=== PATIENT | male | born 1990 | race Caucasian/White ===

== ENCOUNTER 2017-06-22 11:48 | Emergency (ER) | payer OTHER ==
[~2017-06-22] VITALS: Ht 180.3 cm; Wt 87.1 kg
[~2017-06-22 11:48] MED LIST: AMOXICILLIN500 MG PO; CLINDAMYCIN HC300 MG PO; ERY-TAB333 MG PO; IBUPROFEN800 MG PO; NORCO 5-325 TA1 EACH PO; PENICILLIN V P500 MG PO; ULTRAM50 MG PO
[2017-06-22] MEDS ORDERED: BUPRENORPHINE HC8 MG SL (12:22)
== END 2017-06-22 13:12 | disposition home or self-care (01) ==
LOC: ED 11:48
PROC: 4A0D7LZ Measurement of Urinary Volume, Via Natural or Artificial Opening (ICD-10-PCS; principal; 2017-06-22)
DX: R35.0 Frequency of micturition (principal); F17.200 Nicotine dependence, unspecified, uncomplicated; Z79.899 Other long term (current) drug therapy; Z86.14 Personal history of Methicillin resistant Staphylococcus aureus infection
CPT/HCPCS: 51798; 81001; 99283

== ENCOUNTER 2019-03-23 05:20 | Emergency (ER) | payer OTHER ==
[~2019-03-23] VITALS: Ht 180.3 cm; Wt 90.7 kg
[~2019-03-23 05:20] MED LIST changes: +BUPRENORPHINE HC8 MG SL
--- OUTSIDE RECORDS SUMMARY | 2019-03-23 05:24 | XMS ---
PreManage Notification: RENE HERNANDEZ Security Religious Educator Events No recent Security Events currently on file CRITERIA MET - [facility] There are no care providers on record at this time. Hadley has no Care Guidelines for this patient. Cristina VISIT COUNT (12 MO.) 1 JASPREET Hayden TOTAL 1 NOTE: Visits indicate total known visits. ED/C VISIT TRACKING (12 MO.) 03/23/2019 05:21 [facility] [place] TYPE: Emergency COMPLAINT: - LEFT EYE PAIN/INJURY INPATIENT VISIT TRACKING (12 MO.) No inpatient visits to display in this time frame [id number]
[2019-03-23] MEDS ORDERED: GENTAMICIN SULFA5 ML OS (06:11)
== END 2019-03-23 06:19 | disposition home or self-care (01) ==
LOC: ED 05:20
PROC: 08C9XZZ Extirpation of Matter from Left Cornea, External Approach (ICD-10-PCS; principal; 2019-03-23)
DX: T15.02XA Foreign body in cornea, left eye, initial encounter (principal); F17.200 Nicotine dependence, unspecified, uncomplicated; Z79.899 Other long term (current) drug therapy; X58.XXXA Exposure to other specified factors, initial encounter
CPT/HCPCS: 65222; 99283-25

== ENCOUNTER 2020-11-15 16:28 | Emergency (ER) | payer OTHER ==
[~2020-11-15] VITALS: Ht 180.3 cm; Wt 104.3 kg
[~2020-11-15 16:28] MED LIST changes: +GENTAMICIN SULFA5 ML OS
--- OUTSIDE RECORDS SUMMARY | 2020-11-15 16:32 | XMS ---
PreManage Notification: RENE HERNANDEZ Security Button Attaching Machine Operator Events No recent Security Events currently on file CRITERIA MET - PDMP CARE PROVIDERS KUSUM CALZADA [facility] 03/24/2019-Current PHONE: [phone] Hadley has no Care Guidelines for this patient. Cristina VISIT COUNT (12 MO.) 1 JASPREET Hayden TOTAL 1 NOTE: Visits indicate total known visits. ED/UCC VISIT TRACKING (12 MO.) 11/15/2020 16:29 [facility] [place] TYPE: Emergency COMPLAINT: - DENTAL PAIN INPATIENT VISIT TRACKING (12 MO.) No inpatient visits to display in this time frame [id number]
[2020-11-15] MEDS ORDERED: AUGMENTIN 875-1 EACH PO (17:10)
== END 2020-11-15 17:21 | disposition home or self-care (01) ==
LOC: ED 16:28
DX: K04.7 Periapical abscess without sinus (principal); F17.200 Nicotine dependence, unspecified, uncomplicated; Z79.899 Other long term (current) drug therapy
CPT/HCPCS: 41800; 99283-25

== ENCOUNTER 2021-11-07 19:37 | Emergency (ER) | payer OTHER ==
[~2021-11-07] VITALS: Ht 180.3 cm; Wt 107.5 kg
[~2021-11-07 19:37] MED LIST changes: +AUGMENTIN 875-1 EACH PO
--- OUTSIDE RECORDS SUMMARY | 2021-11-07 19:40 | XMS ---
PreManage Notification: RENE HERNANDEZ Security Immigration Services Officer Events No recent Security Events currently on file CRITERIA MET - ESMERP CARE PROVIDERS KUSUM CALZADA [facility] 03/24/2019-Current PHONE: Unknown NINFA ABREU Physician Environmental Engineer Scientist 11/16/2020-Current PHONE: [phone] Hadley has no Care Guidelines for this patient. Cristina VISIT COUNT (12 MO.) Moraih Hayden TOTAL 2 NOTE: Visits indicate total known visits. ED/UCC VISIT TRACKING (12 MO.) 11/07/2021 19:39 [facility] [place] TYPE: Emergency COMPLAINT: - FOREIGN OBJECT 11/15/2020 16:29 [facility] [place] TYPE: Emergency COMPLAINT: - DENTAL PAIN DIAGNOSES: - Periapical abscess without sinus - Other [place] [facility] ([facility] drug therapy - Nicotine dependence, unspecified, uncomplicated INPATIENT VISIT TRACKING (12 MO.) No inpatient visits to display in this time frame [id number]
[2021-11-07] MEDS ORDERED: VYVANSE70 MG PO (21:25)
[2021-11-07] MEDS ORDERED: BUPRENORPHINE-1 EACH SL (21:26)
== END 2021-11-07 22:38 | disposition home or self-care (01) ==
LOC: ED 19:37
DX: T15.02XA Foreign body in cornea, left eye, initial encounter (principal); H20.9 Unspecified iridocyclitis; F17.200 Nicotine dependence, unspecified, uncomplicated; Z79.899 Other long term (current) drug therapy
CPT/HCPCS: 65222; 99283-25

== ENCOUNTER 2023-04-22 13:42 | Emergency (ER) | payer OTHER ==
[~2023-04-22] VITALS: Ht 180.3 cm; Wt 113.7 kg
[~2023-04-22 13:42] MED LIST changes: +BUPRENORPHINE-1 EACH SL; +VYVANSE70 MG PO
--- OUTSIDE RECORDS SUMMARY | 2023-04-22 13:47 | XMS ---
PreManage Notification: RENE HERNANDEZ Security Top Lift Trimmer Events No recent Security Events currently on file CRITERIA MET - ESMERP CARE PROVIDERS -[place]- Dentist: Jewelry Setter [facility] PHONE: [phone] KUSUM CALZADA [facility] 03/24/2019-Current PHONE: Unknown NINFA ABREU Physician Current PHONE: [phone] Hadley has no Care Guidelines for this patient. Cristina VISIT COUNT (12 MO.) 1 JASPREET Hayden TOTAL 1 NOTE: Visits indicate total known visits. ED/UCC VISIT TRACKING (12 MO.) 04/22/2023 13:43 [facility] [place] TYPE: Emergency COMPLAINT: - L EYE RED/SWOLLEN, L FACIAL SKIN PROBLEM INPATIENT VISIT TRACKING (12 MO.) No inpatient visits to display in this time frame [id number]
[2023-04-22] MEDS ORDERED: MOXIFLOXACIN3 ML OP (15:31)
[2023-04-22] MEDS ORDERED: BACTRIM DS TAB1 EACH PO (15:31)
[2023-04-22 15:40] VITALS: BP 125/77
== END 2023-04-22 15:40 | disposition home or self-care (01) ==
LOC: ED 13:42
DX: H11.152 Pinguecula, left eye (principal); H10.9 Unspecified conjunctivitis; L73.9 Follicular disorder, unspecified; F17.200 Nicotine dependence, unspecified, uncomplicated; Z79.899 Other long term (current) drug therapy
CPT/HCPCS: 99283

== ENCOUNTER 2023-04-24 07:46 | Emergency (ER) | payer OTHER ==
[~2023-04-24] VITALS: Ht 180.3 cm; Wt 113.4 kg
[~2023-04-24 07:46] MED LIST changes: +BACTRIM DS TAB1 EACH PO; +MOXIFLOXACIN3 ML OP
--- OUTSIDE RECORDS SUMMARY | 2023-04-24 07:49 | XMS ---
PreManage Notification: RENE HERNANDEZ Security Corporate Human Resources Manager Events No recent Security Events currently on file CRITERIA MET - [facility] - - 2 Visits in 30 Days CARE PROVIDERS -[place]- Dentist: Car Conditioner [facility] PHONE: [phone] KUSUM CALZADA [facility] 03/24/2019-Current PHONE: Unknown NINFA ABREU Physician Salesperson Handbags Current PHONE: [phone] Hadley has no Care Guidelines for this patient. Cristina VISIT COUNT (12 MO.) 2 JASPREET Hayden TOTAL 2 NOTE: Visits indicate total known visits. ED/UCC VISIT TRACKING (12 MO.) 04/24/2023 07:47 [facility] [place] TYPE: Emergency COMPLAINT: - L EYE PAIN 04/22/2023 13:43 [facility] [place] TYPE: Emergency COMPLAINT: - EYE PROBLEM INPATIENT VISIT TRACKING (12 MO.) No inpatient visits to display in this time frame [id number]
[2023-04-24 09:10] VITALS: BP 119/82
== END 2023-04-24 09:10 | disposition home or self-care (01) ==
LOC: ED 07:46
DX: H10.9 Unspecified conjunctivitis (principal); F17.200 Nicotine dependence, unspecified, uncomplicated; Z79.899 Other long term (current) drug therapy
CPT/HCPCS: 99283; 99406

== ENCOUNTER 2023-04-29 07:03 | Emergency (ER) | payer OTHER ==
[~2023-04-29] VITALS: Ht 180.3 cm; Wt 113.7 kg
--- OUTSIDE RECORDS SUMMARY | 2023-04-29 07:10 | XMS ---
PreManage Notification: RENE HERNANDEZ Security Street Light Servicer Supervisor Events No recent Security Events currently on file CRITERIA MET - [facility] - 2 Visits in 30 Days CARE PROVIDERS -[place]- Dentist: Treasury Associate [facility] PHONE: [phone] KUSUM CALZADA [facility] 03/24/2019-Current PHONE: Unknown NINFA ABREU Physician Set Up Person Current PHONE: [phone] Hadley has no Care Guidelines for this patient. Cristina VISIT COUNT (12 MO.) 3 JASPREET Hayden TOTAL 3 NOTE: Visits indicate total known visits. ED/UCC VISIT TRACKING (12 MO.) 04/29/2023 07:04 [facility] [place] TYPE: Emergency COMPLAINT: - R FLANK PAIN 04/24/2023 07:47 [facility] [place] TYPE: Emergency COMPLAINT: - L EYE PAIN DIAGNOSES: - Nicotine dependence, unspecified, uncomplicated - Other extermination inspector (current) drug therapy - Unspecified conjunctivitis 04/22/2023 13:[address] [facility] [place] TYPE: Emergency COMPLAINT: - EYE PROBLEM DIAGNOSES: - Follicular disorder, unspecified - Nicotine dependence, unspecified, uncomplicated - Other retirement (current) drug therapy - Pinguecula, left eye - Unspecified conjunctivitis INPATIENT VISIT TRACKING (12 MO.) No inpatient visits to display in this time frame [id number]
[2023-04-29] MEDS ORDERED: HYDROCODON-ACE1 EA11 PO (08:32)
[2023-04-29 09:35] VITALS: BP 115/75
== END 2023-04-29 09:36 | disposition home or self-care (01) ==
LOC: ED 07:03
DX: R10.9 Unspecified abdominal pain (principal); F17.200 Nicotine dependence, unspecified, uncomplicated
CPT/HCPCS: 36415; 74176; 80053; 81003; 85025; J1885; J7030

== ENCOUNTER 2023-08-31 02:39 | Emergency (ER) | payer OTHER ==
[~2023-08-31] VITALS: Ht 180.3 cm; Wt 100.2 kg
[~2023-08-31 02:39] MED LIST changes: +FLOMAX0.4 MG PO; +HYDROCODON-ACE1 EA11 PO; +IBU600 MG PO; +METHADONE HCL40 MG PO; +ONDANSETRON HCL4 MG PO
--- OUTSIDE RECORDS SUMMARY | 2023-08-31 02:40 | XMS ---
PreManage Notification: RENE HERNANDEZ Security President Financial Institution Events No recent Security Events currently on file CRITERIA MET - [facility] - 2 Visits in 30 Days CARE PROVIDERS NINFA ABREU Physician Lighting Technician 11/16/2020-Current PHONE: [phone] KUSUM CALZADA [facility] 03/24/2019-Current PHONE: Unknown -[place]- Dentist: Service Cleaner [facility] PHONE: [phone] Hadley has no Care Guidelines for this patient. Cristina VISIT COUNT (12 MO.) 5 JASPREET Hayden TOTAL 5 NOTE: Visits indicate total known visits. ED/UCC VISIT TRACKING (12 MO.) 08/31/2023 02:39 [facility] [place] TYPE: Emergency COMPLAINT: - EYE PAIN 08/11/2023 08:57 [facility] [place] TYPE: Emergency COMPLAINT: - FLANK PAIN DIAGNOSES: - Hydronephrosis with renal and ureteral calculous obstruction - Nicotine dependence, unspecified, uncomplicated - Other middle or intermediate school principal (current) drug therapy - Unspecified abdominal pain 04/29/2023 07:[address] [facility] [place] TYPE: Emergency COMPLAINT: - R FLANK PAIN DIAGNOSES: - Nicotine dependence, unspecified, uncomplicated - Unspecified abdominal pain 04/24/2023 07:47 [facility] [place] TYPE: Emergency COMPLAINT: - L EYE PAIN DIAGNOSES: - Nicotine dependence, unspecified, uncomplicated - Other middle or intermediate school principal (current) drug therapy - Unspecified conjunctivitis 04/22/2023 13:[address] [facility] [place] TYPE: Emergency COMPLAINT: - EYE PROBLEM DIAGNOSES: - Follicular disorder, unspecified - Nicotine dependence, unspecified, uncomplicated - Other senior care (current) drug therapy - Pinguecula, left eye - Unspecified conjunctivitis INPATIENT VISIT TRACKING (12 MO.) No inpatient visits to display in this time frame [id number]
[2023-08-31 04:38] VITALS: BP 139/88
== END 2023-08-31 04:38 | disposition home or self-care (01) ==
LOC: ED 02:39
DX: H57.8A1 Foreign body sensation, right eye (principal); F17.200 Nicotine dependence, unspecified, uncomplicated
CPT/HCPCS: 99283

== ENCOUNTER 2023-09-12 15:43 | Emergency (ER) | payer OTHER ==
[~2023-09-12] VITALS: Ht 180.3 cm; Wt 111.0 kg
--- OUTSIDE RECORDS SUMMARY | 2023-09-12 15:46 | XMS ---
PreManage Notification: RENE HERNANDEZ Security Account Manager Events No recent Security Events currently on file CRITERIA MET - 6 ED Visits in 6 Months - [facility] - 2 Visits in 30 Days CARE PROVIDERS NINFA ABREU Physician Entry Manager 11/16/2020-Current PHONE: [phone] KUSUM CALZADA [facility] 03/24/2019-Current PHONE: Unknown -[place]- Dentist: Knockdown Man [facility] PHONE: [phone] Hadley has no Care Guidelines for this patient. Cristina VISIT COUNT (12 MO.) 6 JASPREET Hayden TOTAL 6 NOTE: Visits indicate total known visits. ED/UCC VISIT TRACKING (12 MO.) 09/12/2023 15:44 [facility] [place] TYPE: Emergency COMPLAINT: - BURN 08/31/2023 02:39 [facility] [place] TYPE: Emergency COMPLAINT: - EYE PAIN DIAGNOSES: - Nicotine dependence, unspecified, uncomplicated - FOREIGN BODY SENSATION, RIGHT EYE 08/11/2023 08:57 [facility] [place] TYPE: Emergency COMPLAINT: - FLANK PAIN DIAGNOSES: - Hydronephrosis with renal and ureteral calculous obstruction - Nicotine dependence, unspecified, uncomplicated - Other middle or intermediate school principal (current) drug therapy - Unspecified abdominal pain 04/29/2023 07:[address] [facility] [place] TYPE: Emergency COMPLAINT: - R FLANK PAIN DIAGNOSES: - Nicotine dependence, unspecified, uncomplicated - Unspecified abdominal pain 04/24/2023 07:[address] [facility] [place] TYPE: Emergency COMPLAINT: - L EYE PAIN DIAGNOSES: - Nicotine dependence, unspecified, uncomplicated - Other half-way (current) drug therapy - Unspecified conjunctivitis 04/22/2023 13:[address] [facility] [place] TYPE: Emergency COMPLAINT: - EYE PROBLEM DIAGNOSES: - Follicular disorder, unspecified - Nicotine dependence, unspecified, uncomplicated - Other middle or intermediate school principal (current) drug therapy - Pinguecula, left eye - Unspecified conjunctivitis INPATIENT VISIT TRACKING (12 MO.) No inpatient visits to display in this time frame [id number]
[2023-09-12 16:02] LABS: BASOPHILS 0.3 % (0-2); EOSINOPHILS 0.6 % (0-6); HEMATOCRIT 43.6 % (35.0-50.0); HEMOGLOBIN 14.3 g/dL (12.0-18.0); LYMPHOCYTES 20.2 % (24-44); MCH 28.8 (27-36); MCHC 32.8 g/dl (30-36); MCV 87.7 fl (81-99); MONOCYTES 6.9 % (0-12); PLATELET COUNT 238 K/uL (140-440); RBC 4.97 M/ul (4.3-5.7); RDW 13.1 (10.5-15.0)
[2023-09-12 16:09] LABS: ANION GAP 15.9 (7-21); BUN/CREATININE RATIO 16.37 (6.0-28.6); CALCIUM 9.4 mg/dL (8.5-10.1); CREATININE, SERUM 1.16 mg/dL (0.70-1.30); POTASSIUM 3.9 mmol/L (3.5-5.1)
[2023-09-12] MEDS ORDERED: MORPHINE SULFAT15 MG PO (19:18)
[2023-09-12 21:07] LABS: AMPHETAMINES, URINE POSITIVE (NEGATIVE); BARBITURATES, URINE NEGATIVE (NEGATIVE); BENZODIAZEPINE, URINE NEGATIVE (NEGATIVE); BUPRENORPHINE, URINE NEGATIVE (NEGATIVE); CANNABINOID, URINE POSITIVE (NEGATIVE); COCAINE, URINE NEGATIVE (NEGATIVE); ECSTASY, URINE POSITIVE (NEGATIVE); FENTANYL, URINE POSITIVE (NEGATIVE); OPIATES, URINE POSITIVE (NEGATIVE); OXYCODONE, URINE NEGATIVE (NEGATIVE); PHENCYCLIDINE, URINE NEGATIVE (NEGATIVE)
[2023-09-12 21:48] VITALS: BP 119/62
== END 2023-09-12 21:49 | disposition home or self-care (01) ==
LOC: ED 15:43
PROVIDERS: Emergency Medicine
DX: T59.811A Toxic effect of smoke, accidental (unintentional), initial encounter (principal); T23.362A Burn of third degree of back of left hand, initial encounter; X08.8XXA Exposure to other specified smoke, fire and flames, initial encounter; F17.210 Nicotine dependence, cigarettes, uncomplicated
CPT/HCPCS: 16020; 36415; 71045; 80048; 80307; 85025; 90471; 90715; 94640; 94664; 99284-25; J1100; J1170; J1200; J1790; J1885